=== PATIENT | female | born 1960 | race Caucasian/White ===

== ENCOUNTER 2021-04-17 02:09 | Emergency (ER) | payer OTHER ==
[~2021-04-17] VITALS: Ht 160 cm; Wt 90.7 kg
[~2021-04-17 02:09] MED LIST: ACYCLOVIR 400400 MG PO; APAP500 PO; HYDROCODON-ACE1 EAC8 PO; HYDROCODONE-APA1 TA1 PO; IBUPROFEN 400400 M2 PO; MAXITROL EYE O3.5 GM OPHTHALMIC; NEURONTIN 300300 M1 PO; ONDANSETRON HCL4 M2 PO; VALTREX1000 MG PO; ZOFRAN ODT4 MG PO
[2021-04-17 02:25] LABS: URINE BILIRUBIN NEGATIVE (Negative); URINE BLOOD NEGATIVE (Negative); URINE CLARITY CLEAR; URINE COLOR YELLOW; URINE GLUCOSE-RANDOM NEGATIVE (Negative); URINE KETONES NEGATIVE (Negative); URINE LEUKOCYTES-REFLEX NEGATIVE (Negative); URINE NITRITE-REFLEX NEGATIVE (Negative); URINE PROTEIN NEGATIVE (Negative); URINE SPECIFIC GRAVITY 1.025 (1.005-1.030); URINE UROBILINOGEN 0.2 E.U./dl (0.2-1.0)
[2021-04-17] MEDS ORDERED: HYDROCODON-ACE1 EAC8 PO (04:59)
[2021-04-17] MEDS ORDERED: FLEXERIL PO (04:59)
[2021-04-17] MEDS ORDERED: IBUPROFEN 400400 M1 PO (04:59)
[2021-04-17] MEDS ORDERED: MEDROLDOSEPACK PO (04:59)
[2021-04-17 05:18] VITALS: BP 137/70
== END 2021-04-17 05:18 | disposition home or self-care (01) ==
LOC: M.ERS 02:09
PROVIDERS: Emergency Medicine
DX: M54.42 Lumbago with sciatica, left side (principal); I25.2 Old myocardial infarction; Z98.890 Other specified postprocedural states; Z88.6 Allergy status to analgesic agent; Z91.048 Other nonmedicinal substance allergy status; X50.0XXA Overexertion from strenuous movement or load, initial encounter; Y93.89 Activity, other specified; Y92.89 Other specified places as the place of occurrence of the external cause; Y99.8 Other external cause status